=== PATIENT | female | born 1990 ===

== ENCOUNTER 2022-12-11 14:41 | Outpatient (CLI) | payer OTHER | END 2022-12-11 17:27 | disposition home or self-care (01) | LOC: PRENATAL 14:41 | PROVIDERS: ATTEND Obstetrics & Gynecology Maternal & Fetal Medicine | DX: O35.9XX0 Maternal care for (suspected) fetal abnormality and damage, unspecified, not applicable or unspecified (principal); O35.3XX0 Maternal care for (suspected) damage to fetus from viral disease in mother, not applicable or unspecified; O99.280 Endocrine, nutritional and metabolic diseases complicating pregnancy, unspecified trimester; Z3A.20 20 weeks gestation of pregnancy ==